=== PATIENT | male | born 1945 | race Caucasian/White ===

== ENCOUNTER → 2017-01-20 | Outpatient (CLI) | payer OTHER ==
[2017-01-20 09:09] LABS: BASO % 0.3 % (0.0-1.0); EOS # 0.1 10*3/uL (0.0-0.4); EOS % 1.2 % (1.0-4.0); HEMATOCRIT 46.9 % (42.0-52.0); HEMOGLOBIN 16.1 g/dl (14.0-18.0); LYMPH # 1.9 10*3/uL (1.3-4.4); LYMPH % 27.9 % (27.0-41.0); MEAN CELL VOLUME 87.7 fl (80.0-94.0); MEAN CORPUSCULAR HGB 30.1 pg (27.0-31.0); MEAN CORPUSCULAR HGB CONC 34.3 g/dl (33.0-37.0); MEAN PLATELET VOLUME 9.6 fl (9.6-12.3); MONO # 0.6 10*3/uL (0.1-1.0); MONO % 8.8 % (3.0-9.0); NEUT # 4.2 10*3/uL (2.3-7.9); NEUT % 61.8 % (47.0-73.0); PLATELET COUNT AUTOMATED 225 10*3/uL (130-400); RED BLOOD COUNT 5.35 10*6/uL (4.50-5.90); RED CELL DISTRI WIDTH 12.9 % (0-14.5); WHITE BLOOD COUNT 6.7 10*3/uL (4.8-10.8)
[2017-01-20 09:45] LABS: ALBUMIN 4.2 gm/dl (3.1-4.5); ALKALINE PHOSPHATASE 75 U/L (45-117); BUN 18 mg/dl (7-24); CHLORIDE 102 mmol/L (98-107); CHOLESTEROL 146 mg/dL (<200); CREATININE 1.02 mg/dL (0.70-1.30); POTASSIUM 4.4 mmol/L (3.5-5.1); SGOT/AST 35 IU/L (3-35); SGPT/ALT 55 U/L (12-78); SODIUM 137 mmol/L (136-145); TOTAL PROTEIN 8.1 gm/dL (6.4-8.2); TRIGLYCERIDES 161 mg/dl (<150); VLDL CHOLESTEROL 32 mg/dL (6-40)
[2017-01-20 09:49] LABS: HDL CHOLESTEROL 37 mg/dl (40-60); LDL CHOLESTEROL 77 mg/dL (9-159)
== END | disposition home or self-care (01) ==
LOC: LAB 08:32
PROVIDERS: Family Medicine
DX: I10 Essential (primary) hypertension (principal); E78.5 Hyperlipidemia, unspecified; E66.09 Other obesity due to excess calories; Z68.32 Body mass index [BMI] 32.0-32.9, adult; R73.09 Other abnormal glucose

== ENCOUNTER 2021-03-17 16:38 | Emergency (ER) | payer MEDICARE ==
[~2021-03-17] VITALS: Wt 95.3 kg
[2021-03-17] MEDS ORDERED: ANUSOL-HC25 MG R (18:29)
== END 2021-03-17 18:38 | disposition home or self-care (01) ==
LOC: ED 16:38
DX: K59.00 Constipation, unspecified (principal)

== ENCOUNTER → 2023-07-02 | Outpatient (CLI) | payer MEDICARE ==
[~2023-07-02] MED LIST: ANUSOL-HC25 MG R
[2023-07-02 16:34] LABS: ALKALINE PHOSPHATASE 80 U/L (46-116); BUN 18 mg/dl (9-23); CHLORIDE 102 mmol/L (98-107); POTASSIUM 4.1 mmol/L (3.4-5.1); SGPT/ALT 45 U/L (5-49); TOTAL PROTEIN 7.7 gm/dL (6.0-8.0)
== END | disposition home or self-care (01) ==
LOC: LAB 16:00
PROVIDERS: ATTEND Orthopaedic Surgery
DX: M19.90 Unspecified osteoarthritis, unspecified site (principal); Z79.1 Long term (current) use of non-steroidal anti-inflammatories (NSAID)